=== PATIENT | female | born 1985 | race African-American/Black ===

== ENCOUNTER 2020-06-09 12:10 | Inpatient (IN) | payer OTHER ==
--- NOTE | 2020-06-09 12:14 | BHS.RME ---
Substance Use & Tx History - Substance Use History Alcohol Substance amount: 1 liter vodka Frequency of use: Daily Substance route: Oral Date of Last Use: 06/09/20 (started age 17) Heroin Substance amount: 1 bag Frequency of use: Less than 3 times per week Substance route: Inhalation (ex: sniffing or snorting) Date of Last Use: 06/07/20 (started aage 32) Xanax Substance amount: 2mg - 2 tabs Frequency of use: Less than 3 times per week Substance route: Oral Date of Last Use: 06/07/20 (started age 32) Marijuana/Hashish Substance amount: 2 joints Frequency of use: Daily Substance route: Smoking Date of Last Use: 06/08/20 (started age 19) Nicotine Substance amount: 1/2 pack Frequency of use: Daily Substance route: Smoking Date of Last Use: 06/09/20 (started age 22) Physical/Psych/Mental Status - Behavior General Behavior: Increased activity (restlessness, agitation) Eye Contact: Normal - Cooperativeness Cooperativeness: Cooperative - Thinking Thought Processes: Tight, Logical, Goal Directed - Physical Health Problems Is patient presently having any pain?: No Does patient presently have any injuries (include location): No Does patient currently have a fever: No Is patient : No CIWA Nausea/Vomitin-Int. Nausea w/Dry Heave Muscle Tremors: 2 Anxiety: 4-Mod. Anxious/Guarded Agitation: 4-Moderately Restless Paroxysmal Sweats: 1-Minimal Palms Moist Orientation: 1-Uncertain about Date Tacttile Disturbances: 0-None Auditory Disturbances: 0-None Visual Disturbances: 0-None Headache: 1-Very Mild CIWA-Ar Total Score: 17
--- NOTE | 2020-06-09 12:47 | HP ---
CIWA Score Nausea/Vomitin-Int. Nausea w/Dry Heave Muscle Tremors: 2 Anxiety: 4-Mod. Anxious/Guarded Agitation: 4-Moderately Restless Paroxysmal Sweats: 1-Minimal Palms Moist Orientation: 1-Uncertain about Date Tacttile Disturbances: 0-None Auditory Disturbances: 0-None Visual Disturbances: 0-None Headache: 1-Very Mild CIWA-Ar Total Score: 17 - Admission Criteria [facility]AS[facility] Guidelines: Admission for Medically Managed Detox: Requires at least one of the followin. CIWA greater than 12 2. Seizures within the past 24 hours 3. Delirium tremens within the past 24 hours 4. Hallucinations within the past 24 hours 5. Acute intervention needed for co occurring medical disorder 6. Acute intervention needed for co occurring psychiatric disorder 7. Severe withdrawal that cannot be handled at a lower level of care (continued vomiting, continued diarrhea, abnormal vital signs) requiring intravenous medication and/or fluids 8. Admitting History and Physical - Admission Chief Complaint: 34 yo F presenting for alcohol detox; "I just want some help for my alcohol and other drug use." History of Present Illness: 34 yo F presenting for alcohol detox; "I just want some help for my alcohol and other drug use." First time at [facility] for detox. PMH - HTN (no current BP meds), asthma (albuterol inhaler), ulcerative colitis, and ovarian cyst PSH, Psych, Legal, - none Soc/Domiciled - Homeless (on the streets, "in between houses"); currently unemployed - Substance Use History Alcohol Substance amount: 1 liter vodka Frequency of use: Daily Substance route: Oral Date of Last Use: 06/09/20 (started age 17) Heroin Substance amount: 1 bag Frequency of use: Less than 3 times per week Substance route: Inhalation (ex: sniffing or snorting) Date of Last Use: 06/07/20 (started aage 32) Xanax Substance amount: 2mg - 2 tabs Frequency of use: Less than 3 times per week Substance route: Oral Date of Last Use: 06/07/20 (started age 32) Marijuana/Hashish Substance amount: 2 joints Frequency of use: Daily Substance route: Smoking Date of Last Use: 06/08/20 (started age 19) Nicotine Substance amount: 1/2 pack Frequency of use: Daily Substance route: Smoking Date of Last Use: 06/09/20 (started age 22) History Source: Patient Limitations to Obtaining History: No Limitations Admission ROS [facility] - Ebola screening Have you traveled outside of the country in the last 21 days: No Have you been sick,other than usual withdrawal symptoms: No Do you have a fever: No - Review of Systems Constitutional: Other (fatigue (trouble sleeping)) EENT: reports: No Symptoms Reported Respiratory: reports: Wheezing (intermittent wheezing at baseline d/t asthma) Cardiac: reports: No Symptoms Reported GI: reports: Nausea, Other (mild abdominal pain for several weeks d/t chronic colitis) : reports: No Symptoms Reported Musculoskeletal: reports: Back Pain, Joint Pain (chronic lower back pain; chronic L knee pain) Integumentary: reports: No Symptoms Reported Neuro: reports: Headache Endocrine: reports: No Symptoms Reported Hematology: reports: No Symptoms Reported Psychiatric: reports: Agitated, Anxious Patient History - Smoking Cessation Smoking history: Current every day smoker Have you smoked in the past 12 months: Yes Aproximately how many cigarettes per day: 10 Initiated information on smoking cessation: Yes 'Breaking Loose' booklet given: 06/09/20 Admission Physical Exam [facility] - Vital Signs Vital Signs: BP 140/91 HR 90 RR 18 T 98.0 - Physical General Appearance: Yes: No Apparent Distress, Nourished, Appropriately Dressed HEENTM: Yes: EOMI, Hearing grossly Normal, Normocephalic, Normal Voice Respiratory: Yes: Lungs Clear, Normal Breath Sounds, No Respiratory Distress, No Accessory Muscle Use Neck: Yes: Supple, Trachea in good position Breast: Yes: Breast Exam Deferred Cardiology: Yes: Regular Rhythm, Regular Rate Abdominal: Yes: Normal Bowel Sounds, Non Tender, Flat, Soft Genitourinary: Yes: Other (deferred) Musculoskeletal: Yes: Gait Steady Extremities: Yes: Normal Inspection, Non-Tender Neurological: Yes: Fully Oriented, Alert Integumentary: Yes: Normal Color, Dry, Warm Cleared for Admission [facility] - Detox or Rehab [facility] Level of Care: Medically Managed Breathalyzer - Breathalyzer Breathalyzer: 0.035 Urine Drug Screen - Test Device Lot number: [id number] Expiration date: 12/24/21 - Control Is test valid?: Yes - Results Drug screen NEGATIVE: No Urine drug screen results: THC-Marijuana, MOUSTAPHA-Cocaine Inpatient Rehab Admission - Rehab Decision to Admit Inpatient rehab admission?: No
[2020-06-09 13:04] VITALS: BMI 27.6
[2020-06-09] MEDS ORDERED: MENTHOL/PHENOL 1 EACH UD MM PRN (13:04)
[2020-06-09] MEDS ORDERED: chlordiazePOXIDE HCL 25 MG CAPSULE PO PRN (13:04)
[2020-06-09] MEDS ORDERED: ACETAMINOPHEN 325 MG TABLET (FP) PO PRN ×2 (13:04)
[2020-06-09] MEDS ORDERED: BISMUTH SUBSALICYLATE 524 MG/30 ML UD PO PRN (13:04)
[2020-06-09] MEDS ORDERED: MAG HYDROX/AL HYDROX/SIMETH 30 ML UNIT-DOSE CUP PO PRN (13:04)
[2020-06-09] MEDS ORDERED: NICOTINE POLACRILEX 2 MG GUM BUC PRN (13:04)
[2020-06-09] MEDS ORDERED: ONDANSETRON *ODT* 4 MG TABLET SL PRN (13:04)
[2020-06-09] MEDS ORDERED: MAGNESIUM HYDROX 2400MG/30ML ORAL SUSPENSION 30 ML CUP PO PRN (13:04)
[2020-06-09] MEDS ORDERED: MAGNESIUM CITRATE 300 ML BOTTLE PO PRN (13:04)
[2020-06-09] MEDS: hydrOXYzine PAMOATE 25 MG CAPSULE (FP) PO SCH ×3 (14:38→22:51)
[2020-06-09] MEDS: NICOTINE 14 MG/24 HOURS TOPICAL PATCH TD SCH (14:38)
[2020-06-09 17:35] LABS: BILIRUBIN,TOTAL 0.8 mg/dL (0.2-1); BLOOD UREA NITROGEN 8.7 mg/dL (7-18); CALCIUM 9.5 mg/dL (8.5-10.1); CREATININE 0.9 mg/dL (0.55-1.3); POTASSIUM 4.2 mmol/L (3.5-5.1); TOT PROT 7.4 g/dl (6.4-8.2)
[2020-06-09] MEDS: chlordiazePOXIDE HCL 25 MG CAPSULE PO SCH ×2 (17:46→22:50)
[2020-06-09] MEDS: METHOCARBAMOL 500 MG TABLET PO PRN (17:48)
[2020-06-09 17:49] LABS: HEMOGLOBIN 12.9 GM/dL (10.7-15.3); MCH 32.8 pg (25.7-33.7); MCHC 33.9 g/dl (32.0-36.0); MEAN CELL VOLUME 96.8 fl (80-96); PLATELET COUNT 243 K/MM3 (134-434); RBC 3.93 M/mm3 (3.60-5.2); RDW 14.1 % (11.6-15.6); WHITE BLOOD COUNT 4.9 K/mm3 (4.0-10.0)
[2020-06-09] MEDS: THIAMINE HCL 100 MG TABLET (FP) PO SCH (22:50)
[2020-06-09] MEDS: MELATONIN 5 MG TABLETS PO SCH (22:51)
[2020-06-10] MEDS: chlordiazePOXIDE HCL 25 MG CAPSULE PO SCH (06:19)
[2020-06-10] MEDS: hydrOXYzine PAMOATE 25 MG CAPSULE (FP) PO SCH (06:19)
--- NOTE | 2020-06-10 08:25 | PN ---
Teaching Attending Note Name of Resident: Kevin Oleary ATTENDING PHYSICIAN STATEMENT I saw and evaluated the patient. I reviewed the resident's note and discussed the case with the resident. I agree with the resident's findings and plan as documented. SUBJECTIVE: OBJECTIVE: ASSESSMENT AND PLAN: 1. Alcohol use disorder, withdrawal/uncomplicated Plan 1. Admit to detox 2. Librium protocol
[2020-06-10] MEDS ORDERED: ACETAMINOPHEN 325 MG TABLET (FP) PO ONE (09:55)
[2020-06-10] MEDS ORDERED: LORazepam 1 MG TABLET PO PRN (10:02)
--- NOTE | 2020-06-10 10:03 | PN ---
S CIWA - CIWA Score Nausea/Vomitin-Mild Nausea/No Vomiting Muscle Tremors: 3 Anxiety: 4-Mod. Anxious/Guarded Agitation: 1-Slight > Activity Paroxysmal Sweats: 1-Minimal Palms Moist Orientation: 0-Oriented Tacttile Disturbances: 0-None Auditory Disturbances: 0-None Visual Disturbances: 2-Mild Sensitivity Headache: 2-Mild CIWA-Ar Total Score: 14 BHS Progress Note (SOAP) Subjective: 34 years old female was admitted on 06/09/20 for alcohol and benzo withdrawal sx management treating with librium detox regiment ms waller states that this is her first detox and the experience is not pleasant emotional assurance that motrin for headache robaxin for muscle spasm and zofran for nausea increase vistaril to 50 mg po for anxiety Objective: 06/10/20 10:00 Vital Signs - 24 hr 06/09/20 06/09/20 06/09/20 13:00 14:00 17:16 Temperature 98 F 97.5 F L 97.3 F L Pulse Rate 90 109 H 90 Respiratory 18 16 18 Rate Blood Pressure 140/91 143/96 136/84 O2 Sat by Pulse 99 Oximetry (%) 06/09/20 06/10/20 06/10/20 21:03 06:38 08:38 Temperature 97.3 F L 97.1 F L 97.1 F L Pulse Rate 98 H 80 93 H Respiratory 17 16 18 Rate Blood Pressure 118/66 122/84 126/80 O2 Sat by Pulse 100 98 98 Oximetry (%) Laboratory Tests 06/09/20 06/09/20 06/09/20 12:37 14:10 14:10 WBC 4.9 RBC 3.93 Hgb 12.9 Hct 38.0 MCV 96.8 H MCH 32.8 MCHC 33.9 RDW 14.1 Plt Count 243 MPV 10.0 Sodium Potassium Chloride Carbon Dioxide Anion Gap BUN Creatinine Est GFR (CKD-EPI)AfAm Est GFR (CKD-EPI)NonAf Random Glucose Calcium Total Bilirubin AST ALT Alkaline Phosphatase Total Protein Albumin POC Urine HCG, Qual Negative Syphilis Serology Non-reactive 06/09/20 14:10 WBC RBC Hgb Hct MCV MCH MCHC RDW Plt Count MPV Sodium 140 Potassium 4.2 Chloride 103 Carbon Dioxide 27 Anion Gap 10 BUN 8.7 Creatinine 0.9 Est GFR (CKD-EPI)AfAm 98.06 Est GFR (CKD-EPI)NonAf 84.60 Random Glucose 98 Calcium 9.5 Total Bilirubin 0.8 AST 108 H ALT 46 Alkaline Phosphatase 62 Total Protein 7.4 Albumin 4.0 POC Urine HCG, Qual Syphilis Serology ast elevation discontinue librium begin ativan alcohol detox regiment discontinue tylenal 06/10/20 10:05 Assessment: 06/10/20 10:06 alcohol and benzo withdrawal Plan: librium regiment
--- NOTE | 2020-06-10 10:07 | EKG ---
Test Reason : Blood Pressure : / mmHG Vent. Rate : 072 BPM Atrial Rate : 072 BPM P-R Int : 116 ms QRS Dur : 082 ms QT Int : 402 ms P-R-T Axes : 005 045 029 degrees QTc Int : 440 ms NORMAL SINUS RHYTHM MINIMAL VOLTAGE CRITERIA FOR LVH, MAY BE NORMAL VARIANT BORDERLINE ECG NO PREVIOUS ECGS AVAILABLE Confirmed by Gustavo Prajapati ([id number]) on 06/10/2020 10:06:41 AM Referred By: Confirmed By:Gustavo Prajapati
[2020-06-10] MEDS ORDERED: IBUPROFEN 600 MG TABLET (FP) PO ONE (10:15)
[2020-06-10] MEDS ORDERED: ONDANSETRON *ODT* 4 MG TABLET SL ONE (10:15)
[2020-06-10] MEDS ORDERED: METHOCARBAMOL 750 MG TAB PO ONE (10:15)
[2020-06-10] MEDS: LORazepam 2 MG TABLET PO SCH ×3 (10:40→22:24)
[2020-06-10] MEDS: PRENATAL VITAMINS W/ FOLIC ACID TABLET (FP) PO SCH (10:41)
[2020-06-10] MEDS: NICOTINE 14 MG/24 HOURS TOPICAL PATCH TD SCH (10:41)
[2020-06-10] MEDS: hydrOXYzine PAMOATE 50 MG CAPSULE (FP) PO SCH ×2 (12:24→18:07)
[2020-06-10] MEDS: MELATONIN 5 MG TABLETS PO SCH (22:24)
[2020-06-10] MEDS: THIAMINE HCL 100 MG TABLET (FP) PO SCH (22:24)
[2020-06-10] MEDS: IBUPROFEN 400 MG TABLET (FP) PO PRN (22:27)
[2020-06-11] MEDS: hydrOXYzine PAMOATE 50 MG CAPSULE (FP) PO SCH ×5 (00:03→23:28)
[2020-06-11] MEDS ORDERED: chlordiazePOXIDE HCL 25 MG CAPSULE PO SCH (05:00)
[2020-06-11] MEDS: LORazepam 2 MG TABLET PO SCH ×4 (06:01→22:11)
[2020-06-11] MEDS: IBUPROFEN 400 MG TABLET (FP) PO PRN (06:02)
[2020-06-11] MEDS: PRENATAL VITAMINS W/ FOLIC ACID TABLET (FP) PO SCH (10:43)
[2020-06-11] MEDS: METHOCARBAMOL 500 MG TABLET PO PRN (10:43)
[2020-06-11] MEDS: NICOTINE 14 MG/24 HOURS TOPICAL PATCH TD SCH (10:45)
--- NOTE | 2020-06-11 11:50 | PN ---
S CIWA - CIWA Score Nausea/Vomitin-Mild Nausea/No Vomiting Muscle Tremors: 2 Anxiety: 2 Agitation: 2 Paroxysmal Sweats: No Perspiration Orientation: 0-Oriented Tacttile Disturbances: 1-Very Mild Itch/Numbness Auditory Disturbances: 0-None Visual Disturbances: 0-None Headache: 2-Mild CIWA-Ar Total Score: 10 BHS Progress Note (SOAP) Subjective: alert,irritable,anxious,interrupted sleep,tremor,aching pain Objective: 06/11/20 18:04 Vital Signs Temperature 97.3 F L 06/11/20 17:07 Pulse Rate 100 H 06/11/20 17:07 Respiratory Rate 18 06/11/20 17:07 Blood Pressure 121/81 06/11/20 17:07 O2 Sat by Pulse Oximetry (%) 100 06/11/20 13:30 Laboratory Last Values WBC 4.9 K/mm3 (4.0-10.0) 06/09/20 14:10 RBC 3.93 M/mm3 (3.60-5.2) 06/09/20 14:10 Hgb 12.9 GM/dL (10.7-15.3) 06/09/20 14:10 Hct 38.0 % (32.4-45.2) 06/09/20 14:10 MCV 96.8 fl (80-96) H 06/09/20 14:10 MCH 32.8 pg (25.7-33.7) 06/09/20 14:10 MCHC 33.9 g/dl (32.0-36.0) 06/09/20 14:10 RDW 14.1 % (11.6-15.6) 06/09/20 14:10 Plt Count 243 K/MM3 (134-434) 06/09/20 14:10 MPV 10.0 fl (7.5-11.1) 06/09/20 14:10 Sodium 140 mmol/L (136-145) 06/09/20 14:10 Potassium 4.2 mmol/L (3.5-5.1) 06/09/20 14:10 Chloride 103 mmol/L (98-107) 06/09/20 14:10 Carbon Dioxide 27 mmol/L (21-32) 06/09/20 14:10 Anion Gap 10 MMOL/L (8-16) 06/09/20 14:10 BUN 8.7 mg/dL (7-18) 06/09/20 14:10 Creatinine 0.9 mg/dL (0.55-1.3) 06/09/20 14:10 Est GFR (CKD-EPI)AfAm 98.06 06/09/20 14:10 Est GFR (CKD-EPI)NonAf 84.60 06/09/20 14:10 Random Glucose 98 mg/dL (74-106) 06/09/20 14:10 Calcium 9.5 mg/dL (8.5-10.1) 06/09/20 14:10 Total Bilirubin 0.8 mg/dL (0.2-1) 06/09/20 14:10 AST 108 U/L (15-37) H 06/09/20 14:10 ALT 46 U/L (13-61) 06/09/20 14:10 Alkaline Phosphatase 62 U/L (45-117) 06/09/20 14:10 Total Protein 7.4 g/dl (6.4-8.2) 06/09/20 14:10 Albumin 4.0 g/dl (3.4-5.0) 06/09/20 14:10 POC Urine HCG, Qual Negative 06/09/20 12:37 Syphilis Serology Non-reactive (NONREACTIVE) 06/09/20 14:10 COVID-19 ([place]) Not detected (Not Detected) 06/09/20 13:20 Assessment: 06/11/20 18:04 withdrawal symptom Plan: continue detox librium regimen
[2020-06-11] MEDS: ALBUTEROL SO4 HFA INHALER IH PRN ×2 (13:05→22:14)
[2020-06-11] MEDS: MELATONIN 5 MG TABLETS PO SCH (22:11)
[2020-06-11] MEDS: THIAMINE HCL 100 MG TABLET (FP) PO SCH (22:11)
[2020-06-11] MEDS: IBUPROFEN 600 MG TABLET (FP) PO PRN (22:13)
[2020-06-12] MEDS ORDERED: chlordiazePOXIDE HCL 10 MG CAPSULE PO PRN
[2020-06-12] MEDS ORDERED: chlordiazePOXIDE HCL 10 MG CAPSULE PO SCH (05:00)
[2020-06-12] MEDS: hydrOXYzine PAMOATE 50 MG CAPSULE (FP) PO SCH ×2 (05:54→12:00)
[2020-06-12] MEDS: LORazepam 1 MG TABLET PO SCH ×2 (05:55→10:27)
[2020-06-12] MEDS: NICOTINE 14 MG/24 HOURS TOPICAL PATCH TD SCH (10:27)
[2020-06-12] MEDS: PRENATAL VITAMINS W/ FOLIC ACID TABLET (FP) PO SCH (10:28)
[2020-06-12] MEDS: METHOCARBAMOL 500 MG TABLET PO PRN (10:28)
[2020-06-12] MEDS: IBUPROFEN 600 MG TABLET (FP) PO PRN (10:30)
[2020-06-12] MEDS: ALBUTEROL SO4 HFA INHALER IH PRN (10:31)
--- NOTE | 2020-06-12 11:52 | CONSULT ---
[facility] Psychiatric Consult - Data Date of interview: 06/12/20 Admission source: [facility] Identifying data: First visit to [facility] and admission to [address] [place] [address] for this 34 y/o AA female self-referred for detoxification treatment. NOELLE issues : alcohol, heroin, benzodiazepine (xanax), cocaine, cannabis, nicotine. Patient is single, no dependents, homeless, unemployed and deprived of financial assistance. Substance Abuse History: Discussed with the patient. NOELLE profile as follows : Alcohol. Substance amount: 1 liter vodka. Frequency of use: Daily. Substance route: Oral. Date of Last Use: 06/09/20 (started age 17). Heroin. Substance amount: 1 bag. Frequency of use: Less than 3 times per week. Substance route: Inhalation (ex: sniffing or snorting). Date of Last Use: 06/07/20 (started aage 32). Xanax. Substance amount: 2mg - 2 tabs. Frequency of use: Less than 3 times per week. Substance route: Oral. Date of Last Use: 06/07/20 (started age 32). Marijuana/Hashish. Substance amount: 2 joints. Frequency of use: Daily. Substance route: Smoking. Date of Last Use: 06/08/20 (started age 19). Nicotine. Substance amount: 1/2 pack. Frequency of use: Daily. Substance route: Smoking. Date of Last Use: 06/09/20 (started age 22). History Source: Patient. Limitations to Obtaining History: No Limitations. Patient endoress history of previous NOELLE treatment failures. Medical History: Medical profile is remarkable for hypertension, bronchial asthma and colitis. No known allergies. Psychiatric History: Patient is a vague and fatigued historian. She indicates that she saw a psychiatrist, as early as age 16 (reasons not clear). Ms Pickering reports that she has been diagnosed with MDD and Bipolar Disorder. No recall of psychotropic medications with the exception of seroquel (dose unknown). Non adherent for months. Patient remembers a distant psychiatric hospitalization (years ago) at [facility] in [place], [place]. Has been lost to OPD care for an undetermined period of time. She denies history of suicide attempts. Physical/Sexual Abuse/Trauma History: Patient declines to discuss this domain. Additional Comment: Urine drug screen results: THC-Marijuana, MOUSTAPHA-Cocaine. Noted. Mental Status Exam - Mental Status Exam Alert and Oriented to: Time, Place, Person Cognitive Function: Good Patient Appearance: Unkempt, Disheveled Mood: Sad, Nervous, Withdrawn Affect: Constricted Patient Behavior: Fatigued, Appropriate, Cooperative Speech Pattern: Clear, Appropriate Voice Loudness: Normal Thought Process: Intact, Goal Oriented Thought Disorder: Not Present Hallucinations: Denies Suicidal Ideation: Denies Homicidal Ideation: Denies Insight/Judgement: Poor Sleep: Poorly, Difficulty falling asleep Appetite: Good Gait/Station: Other (not observed out of bed) Psychiatric Findings - Problem List ([place] 1, 2,3) (1) Alcohol use disorder Current Visit: Yes Status: Chronic (2) Marihuana dependence Current Visit: Yes Status: Chronic (3) Cocaine use disorder Current Visit: Yes Status: Chronic (4) Nicotine dependence Current Visit: Yes Status: Chronic (5) Substance induced mood disorder Current Visit: Yes Status: Chronic (6) History of depression Current Visit: Yes Status: Chronic (7) Insomnia Current Visit: Yes Status: Chronic - Initial Treatment Plan Initial Treatment Plan: Psychoeducation. Support. Sleep hygiene. Detoxification in progress. Seroquel 50 mg po hs. Ordered at the patient's request. Side effects/benefits discussed with the patient. Consent (verbal) granted to MD. Melissa.
[2020-06-12 13:22] VITALS: BP 114/82; PULSE 90; TEMP 98.1
--- NOTE | 2020-06-12 17:43 | DS ---
[facility] Detox Discharge Summary Admission Date: 06/09/20 Discharge Date: 06/12/20 - History Additional Comments: Patient left against medical advice. He reports as per his nurse, MsRubio SteinSherrell Patrick, "I just want to leave, can't be here anymore". Patient left before he could be assessed by a provider. Pertinent Past History: Alcohol dependence Benzodiazepine dependence Cocaine dependence Insomnia Marijuana dependence Nicotine dependence - Physical Exam Results Vital Signs: Vital Signs Temperature 98.1 F 06/12/20 13:00 Pulse Rate 90 06/12/20 13:00 Respiratory Rate 20 06/12/20 13:00 Blood Pressure 114/82 06/12/20 13:00 O2 Sat by Pulse Oximetry (%) 100 06/12/20 13:00 Laboratory Last Values WBC 4.9 K/mm3 (4.0-10.0) 06/09/20 14:10 RBC 3.93 M/mm3 (3.60-5.2) 06/09/20 14:10 Hgb 12.9 GM/dL (10.7-15.3) 06/09/20 14:10 Hct 38.0 % (32.4-45.2) 06/09/20 14:10 MCV 96.8 fl (80-96) H 06/09/20 14:10 MCH 32.8 pg (25.7-33.7) 06/09/20 14:10 MCHC 33.9 g/dl (32.0-36.0) 06/09/20 14:10 RDW 14.1 % (11.6-15.6) 06/09/20 14:10 Plt Count 243 K/MM3 (134-434) 06/09/20 14:10 MPV 10.0 fl (7.5-11.1) 06/09/20 14:10 Sodium 140 mmol/L (136-145) 06/09/20 14:10 Potassium 4.2 mmol/L (3.5-5.1) 06/09/20 14:10 Chloride 103 mmol/L (98-107) 06/09/20 14:10 Carbon Dioxide 27 mmol/L (21-32) 06/09/20 14:10 Anion Gap 10 MMOL/L (8-16) 06/09/20 14:10 BUN 8.7 mg/dL (7-18) 06/09/20 14:10 Creatinine 0.9 mg/dL (0.55-1.3) 06/09/20 14:10 Est GFR (CKD-EPI)AfAm 98.06 06/09/20 14:10 Est GFR (CKD-EPI)NonAf 84.60 06/09/20 14:10 Random Glucose 98 mg/dL (74-106) 06/09/20 14:10 Calcium 9.5 mg/dL (8.5-10.1) 06/09/20 14:10 Total Bilirubin 0.8 mg/dL (0.2-1) 06/09/20 14:10 AST 108 U/L (15-37) H 06/09/20 14:10 ALT 46 U/L (13-61) 06/09/20 14:10 Alkaline Phosphatase 62 U/L (45-117) 06/09/20 14:10 Total Protein 7.4 g/dl (6.4-8.2) 06/09/20 14:10 Albumin 4.0 g/dl (3.4-5.0) 06/09/20 14:10 POC Urine HCG, Qual Negative 06/09/20 12:37 Syphilis Serology Non-reactive (NONREACTIVE) 06/09/20 14:10 COVID-19 ([place]) Not detected (Not Detected) 06/09/20 13:20 Pertinent Admission Physical Exam Findings: Alcohol withdrawal symptoms - Medication Discharge Medications: Ambulatory Orders Albuterol Sulfate Inhaler - [Ventolin Hfa Inhaler -] 2 inh PO Q4H PRN 06/09/20 - Diagnosis (1) Alcohol use disorder Status: Chronic (2) Benzodiazepine dependence Status: Chronic (3) Cocaine use disorder Status: Chronic (4) History of depression Status: Chronic (5) Insomnia Status: Chronic (6) Marihuana dependence Status: Chronic (7) Nicotine dependence Status: Chronic Qualifiers: Nicotine product type: cigarettes Substance use status: uncomplicated Qualified Code(s): F17.210 - Nicotine dependence, cigarettes, uncomplicated - AMA Did Patient Leave Against Medical Advice: Yes
[2020-06-13] MEDS ORDERED: LORazepam 0.5 MG TABLET PO PRN
[2020-06-13] MEDS ORDERED: LORazepam 0.5 MG TABLET PO SCH (05:00)
[2020-06-13] MEDS ORDERED: chlordiazePOXIDE HCL 10 MG CAPSULE PO SCH (05:00)
[2020-06-14] MEDS ORDERED: LORazepam 0.5 MG TABLET PO ONE (05:00)
[2020-06-14] MEDS ORDERED: chlordiazePOXIDE HCL 10 MG CAPSULE PO ONE (05:00)
== END 2020-06-12 17:15 | disposition left against medical advice (07) | DRG 770 ==
LOC: YASAS 12:10 → Y3N 12:52
PROVIDERS: ADMIT Allergy & Immunology; ATTEND Allergy & Immunology
PROC: HZ2ZZZZ Detoxification Services for Substance Abuse Treatment (ICD-10-PCS; principal; 2020-06-09)
DX: F10.230 Alcohol dependence with withdrawal, uncomplicated (principal); F13.230 Sedative, hypnotic or anxiolytic dependence with withdrawal, uncomplicated; F11.20 Opioid dependence, uncomplicated; F14.20 Cocaine dependence, uncomplicated; F12.20 Cannabis dependence, uncomplicated; F17.210 Nicotine dependence, cigarettes, uncomplicated; F19.24 Other psychoactive substance dependence with psychoactive substance-induced mood disorder; F32.9 Major depressive disorder, single episode, unspecified; G47.00 Insomnia, unspecified; I10 Essential (primary) hypertension; J45.909 Unspecified asthma, uncomplicated; K52.9 Noninfective gastroenteritis and colitis, unspecified; M54.5 Low back pain; M25.562 Pain in left knee; G89.29 Other chronic pain; N83.209 Unspecified ovarian cyst, unspecified side; Z56.0 Unemployment, unspecified; Z59.0 Homelessness
CPT/HCPCS: 36415; 80053; 81025; 85027; 86780; 93005; 93010; Q0162; U0003